=== PATIENT | female | born 1950 | race African-American/Black ===

== ENCOUNTER 2022-02-23 19:30 | Outpatient (CLI) | payer MEDICARE, MEDICAID | END 2022-02-23 19:31 | disposition home or self-care (01) | LOC: SLEEPLAB 19:30 | PROVIDERS: ATTEND Student in an Organized Health Care Education/Training Program | DX: G47.33 Obstructive sleep apnea (adult) (pediatric) (principal); R53.83 Other fatigue; I13.2 Hypertensive heart and chronic kidney disease with heart failure and with stage 5 chronic kidney disease, or end stage renal disease; I50.9 Heart failure, unspecified; N18.6 End stage renal disease; G47.00 Insomnia, unspecified; G47.10 Hypersomnia, unspecified; R06.83 Snoring | CPT/HCPCS: 95811 ==

== ENCOUNTER 2023-02-24 18:51 | Inpatient (IN) | payer OTHER ==
[2023-02-24] MEDS ORDERED: Ondansetron PF 4 MG/2 ML Vial IVP PRN (20:09)
[2023-02-24] MEDS ORDERED: Ondansetron ODT 4 MG TAB PO PRN (20:09)
[2023-02-24] MEDS ORDERED: Acetaminophen 650 MG Suppository PR PRN (20:09)
[2023-02-24 20:26] LABS: INR-International Normal Ratio 1.3; PTT 51.8 sec (22.9-36.1); Prothrombin Time 17.1 sec (12.0-14.7)
[2023-02-24] MEDS ORDERED: Ciprofloxacin Lactate/D5W 400 MG in Premix 1 BAG IVPB SCH ×2 (20:30→21:00)
[2023-02-24 20:40] LABS: Hematocrit 27.5 % (36.0-47.0); Hemoglobin 8.6 g/dL (12.0-16.0); Mean Corpuscular HGB CONC 31.3 g/dL (32.0-36.0); Mean Corpuscular Hemoglobin 23.9 pg (27.0-31.0); Mean Corpuscular Volume 76.4 fl (78.0-98.0); Mean Platelet Volume 9.6 fL (7.4-10.4); Platelet Count 436 10x3/uL (130-400); White Blood Cell (WBC) Count 47.9 10x3/uL (4.8-10.8)
[2023-02-24 20:42] LABS: Delete Auto Diff?? YES; Manual Diff?? YES
[2023-02-24 21:07] LABS: ALT (SGPT) 9 U/L (8-55); AST (SGOT) 17 U/L (5-34); Albumin 3.5 g/dL (3.4-4.8); Alkaline Phosphatase 103 U/L (40-110); Anion Gap 18 mmol/L (10-20); BUN (Urea Nitrogen) 31 mg/dL (9.8-20.1); Bilirubin, Total 0.6 mg/dL (0.2-1.2); Calc. Creatinine Clearance 8 mL/min (70-130); Calcium 8.5 mg/dL (7.8-10.44); Carbon Dioxide 22 mmol/L (23-31); Chloride 100 mmol/L (98-107); Estimated GFR 5; Globulin 3.8 g/dL (2.4-3.5); Glucose 99 mg/dL (83-110); Potassium 4.5 mmol/L (3.5-5.1); Protein, Total 7.3 g/dL (5.8-8.1); Sodium 135 mmol/L (136-145)
[2023-02-24 21:11] LABS: Anisocytosis MARKED = >30 cells HPF (0-5); Band 2 % (5-11); CellaVision Operator ID lab.sh2; Hypochromia MODERATE=16-30 cells HPF (0-5); Lymphocytes 3 % (21-51); Macrocytosis SLIGHT = 6-15 cells HPF (0-5); Microcytosis MODERATE=15-30 cells HPF (0-5); Monocytes 5 % (0-10); Neutrophil 90 % (42-75); Platelet Adequacy Comment Platelets Increased; Poikilocytosis MODERATE=16-30 cells HPF (0-5); Polychromasia MODERATE = 3-4 cells HPF (0-2); Stomatocytes SLIGHT = 2-5 cells HPF (0-1); Target Cells MODERATE= 6-15 cells HPF (0-1); Total Cell Count 102; Vacuoles SLIGHT
[2023-02-24] MEDS ORDERED: metroNIDAZOLE 500 MG in Premix 1 BAG IVPB SCH (22:00)
[2023-02-24] MEDS: Acetaminophen 325 MG TAB PO PRN (22:22)
[2023-02-24] MEDS ORDERED: Vancomycin (BATCH) 1.25 GM in Premix 1 BAG IVPB SCH (23:15)
[2023-02-24] MEDS ORDERED: Vancomycin Diaylsis Sliding Scale (Wt 71-99) FS SCH (23:45)
[2023-02-24] MEDS ORDERED: Meropenem 1 GM in Sodium Chloride 0.9% 100 ML IVPB SCH (23:59)
[2023-02-24] MEDS ORDERED: Vancomycin (BATCH) 1.5 GM in Premix 1 BAG IVPB SCH (23:59)
[2023-02-25 01:17] LABS: Lactic Acid 1.1 mmol/L (0.5-2.2)
[2023-02-25 04:32] LABS: Hematocrit 26.3 % (36.0-47.0); Hemoglobin 8.3 g/dL (12.0-16.0); Mean Corpuscular HGB CONC 31.6 g/dL (32.0-36.0); Mean Corpuscular Hemoglobin 23.9 pg (27.0-31.0); Mean Corpuscular Volume 75.6 fl (78.0-98.0); Platelet Count 401 10x3/uL (130-400); RBC Distribution Width 19.9 % (11.5-14.5); Red Blood Cell (RBC) Count 3.48 mill/uL (4.20-5.40); White Blood Cell (WBC) Count 49.1 10x3/uL (4.8-10.8)
[2023-02-25 04:35] LABS: Delete Auto Diff?? YES; Manual Diff?? YES
[2023-02-25 04:49] LABS: INR-International Normal Ratio 1.5; Prothrombin Time 18.6 sec (12.0-14.7)
[2023-02-25 04:50] LABS: PTT 56.9 sec (22.9-36.1)
[2023-02-25 04:56] LABS: Anion Gap 16 mmol/L (10-20); BUN (Urea Nitrogen) 35 mg/dL (9.8-20.1); Calc. Creatinine Clearance 8 mL/min (70-130); Calcium 8.2 mg/dL (7.8-10.44); Carbon Dioxide 23 mmol/L (23-31); Chloride 99 mmol/L (98-107); Estimated GFR 5; Glucose 93 mg/dL (83-110); Potassium 4.8 mmol/L (3.5-5.1); Sodium 133 mmol/L (136-145)
[2023-02-25 05:00] LABS: Anisocytosis MARKED = >30 cells HPF (0-5); Band 1 % (5-11); CellaVision Operator ID lab.sh2; Hypochromia SLIGHT = 6-15 cells HPF (0-5); Lymphocytes 8 % (21-51); Macrocytosis SLIGHT = 6-15 cells HPF (0-5); Microcytosis SLIGHT = 6-15 cells HPF (0-5); Monocytes 6 % (0-10); Neutrophil 85 % (42-75); Nucleated RBC (Manual Ct) 8 % (0); Platelet Adequacy Comment Platelets Increased; Poikilocytosis MODERATE=16-30 cells HPF (0-5); Polychromasia MODERATE = 3-4 cells HPF (0-2); Stomatocytes SLIGHT = 2-5 cells HPF (0-1); Target Cells MODERATE= 6-15 cells HPF (0-1); Total Cell Count 102; Vacuoles SLIGHT
[2023-02-25] MEDS: Meropenem 500 MG in Sodium Chloride 0.9% 100 ML IVPB SCH ×3 (08:15→22:21)
[2023-02-25 08:42] LABS: INR-International Normal Ratio 1.5; Prothrombin Time 18.7 sec (12.0-14.7)
[2023-02-25 08:51] LABS: ALT (SGPT) 7 U/L (8-55); AST (SGOT) 20 U/L (5-34); Albumin 3.5 g/dL (3.4-4.8); Alkaline Phosphatase 103 U/L (40-110); Bilirubin, Direct 0.4 mg/dL (0.1-0.3); Bilirubin, Total 0.6 mg/dL (0.2-1.2); Protein, Total 7.3 g/dL (5.8-8.1)
[2023-02-25] MEDS ORDERED: Ipratropium/Albuterol 3 ML NEB NEB PRN (10:10)
[2023-02-25] MEDS ORDERED: Morphine 2 MG/ML VIAL SLOW IVP PRN (10:21)
[2023-02-25] MEDS: Morphine 4 MG/ML VIAL SLOW IVP PRN (10:50)
[2023-02-25 11:53] LABS: Iron 17 ug/dL (50-170); Iron Binding Capacity, Total 131 mcg/dL (265-497)
[2023-02-25] MEDS ORDERED: Morphine 4 MG/ML VIAL SLOW IVP PRN (12:25)
[2023-02-25] MEDS ORDERED: Morphine 4 MG/ML VIAL SLOW IVP SCH ×2 (12:30)
[2023-02-25 13:09] LABS: HBSAg Index 0.26 S/CO (0-0.99); Hep B Surf Ag Non-Reactive S/CO (NonReactive)
[2023-02-25] MEDS ORDERED: fentaNYL 50 mcg/mL 1 mL Vial SLOW IVP SCH (15:06)
[2023-02-25 15:10] LABS: HBSAB Concentration 10.72 mIU/mL; Hep B Surf AB Indeterminate (NonReactive)
[2023-02-25 17:13] VITALS: BMI 31.4
[2023-02-25] MEDS ORDERED: Ciprofloxacin Lactate/D5W 200 MG in Premix 1 BAG IVPB SCH (20:00)
[2023-02-25 20:34] LABS: Hematocrit 27.3 % (36.0-47.0); Hemoglobin 8.5 g/dL (12.0-16.0); Mean Corpuscular HGB CONC 31.1 g/dL (32.0-36.0); Mean Corpuscular Hemoglobin 23.7 pg (27.0-31.0); Mean Corpuscular Volume 76.3 fl (78.0-98.0); Mean Platelet Volume 9.7 fL (7.4-10.4); Platelet Count 339 10x3/uL (130-400); RBC Distribution Width 19.7 % (11.5-14.5); Red Blood Cell (RBC) Count 3.58 mill/uL (4.20-5.40); White Blood Cell (WBC) Count 44.8 10x3/uL (4.8-10.8)
[2023-02-25 20:35] LABS: Delete Auto Diff?? YES; Manual Diff?? YES
[2023-02-25 20:57] LABS: Anisocytosis MODERATE=16-30 cells HPF (0-5); Band 5 % (5-11); CellaVision Operator ID LAB.CLH1; Hypochromia SLIGHT = 6-15 cells HPF (0-5); Lymphocytes 2 % (21-51); Macrocytosis SLIGHT = 6-15 cells HPF (0-5); Monocytes 2 % (0-10); Neutrophil 91 % (42-75); Nucleated RBC (Manual Ct) 2 % (0); Platelet Adequacy Comment Platelets Normal; Polychromasia SLIGHT = 2-3 cells HPF (0-2); Target Cells MODERATE= 6-15 cells HPF (0-1); Total Cell Count 100
[2023-02-25] MEDS ORDERED: Meropenem 500 MG in Sodium Chloride 0.9% 100 ML IVPB SCH (22:00)
[2023-02-25] MEDS: Amiodarone 200 MG TAB PO SCH (22:21)
[2023-02-26] MEDS: Morphine 4 MG/ML VIAL SLOW IVP PRN (05:54)
[2023-02-26] MEDS ORDERED: Epoetin (ESRD) 10,000 UNITS/ML VIAL SC SCH (09:00)
[2023-02-26] MEDS: Amiodarone 200 MG TAB PO SCH ×2 (09:17→20:09)
[2023-02-26 09:52] LABS: Hematocrit 23.4 % (36.0-47.0); Hemoglobin 7.4 g/dL (12.0-16.0); Mean Corpuscular HGB CONC 31.6 g/dL (32.0-36.0); Mean Corpuscular Hemoglobin 23.7 pg (27.0-31.0); Mean Platelet Volume 10.7 fL (7.4-10.4); Platelet Count 329 10x3/uL (130-400); RBC Distribution Width 19.7 % (11.5-14.5); Red Blood Cell (RBC) Count 3.12 mill/uL (4.20-5.40); White Blood Cell (WBC) Count 31.1 10x3/uL (4.8-10.8)
[2023-02-26 09:53] LABS: Delete Auto Diff?? YES; Manual Diff?? YES
[2023-02-26 10:19] LABS: ALT (SGPT) 8 U/L (8-55); AST (SGOT) 24 U/L (5-34); Alkaline Phosphatase 131 U/L (40-110); Bilirubin, Direct 0.3 mg/dL (0.1-0.3); Bilirubin, Total 0.7 mg/dL (0.2-1.2); Magnesium 2.1 mg/dL (1.6-2.6); Phosphorus 4.1 mg/dL (2.3-4.7); Protein, Total 6.8 g/dL (5.8-8.1)
[2023-02-26 10:22] LABS: Band 3 % (5-11); CellaVision Operator ID LAB.GE; Eosinophils 4 % (0-10); Hypochromia SLIGHT = 6-15 cells HPF (0-5); Lymphocytes 3 % (21-51); Metamyelocyte 1 % (0-0); Microcytosis SLIGHT = 6-15 cells HPF (0-5); Monocytes 4 % (0-10); Neutrophil 83 % (42-75); Nucleated RBC (Manual Ct) 6 % (0); Platelet Adequacy Comment Platelets Normal; Polychromasia MODERATE = 3-4 cells HPF (0-2); Reactive Lymphocytes 3 % (0-10); Target Cells MODERATE= 6-15 cells HPF (0-1); Total Cell Count 103
[2023-02-26] MEDS: Folic Acid 1 MG TAB PO SCH (12:03)
[2023-02-26] MEDS: Heparin 5,000 UNITS/ML VIAL SC SCH ×2 (15:54→20:09)
[2023-02-26] MEDS: Meropenem 500 MG in Sodium Chloride 0.9% 100 ML IVPB SCH (21:57)
[2023-02-27 06:29] LABS: Actual Bicarbonate (HCO3v) 23.8 mEq/L (22-28); Base Excess -1.8 mEq/L (-2.0 to +3.0); Calcium, Ionized (venous) 1.01 mmol/L (1.16-1.32); Chloride (VBG) 96 mmol/L (98-106); Hematocrit-VBG 21 % (36.0-47.0); Hemoglobin (Hb) 7.3 g/dL (11.7-16.1); Potassium (VBG) 4.37 mmol/L (3.70-5.30); Sodium 131 mmol/L (133-146); pH (venous) 7.347 (7.32-7.43)
[2023-02-27 06:34] LABS: Hematocrit 23.5 % (36.0-47.0); Hemoglobin 7.4 g/dL (12.0-16.0); Mean Corpuscular HGB CONC 31.5 g/dL (32.0-36.0); Mean Corpuscular Hemoglobin 23.5 pg (27.0-31.0); Mean Corpuscular Volume 74.6 fl (78.0-98.0); Mean Platelet Volume 9.7 fL (7.4-10.4); Platelet Count 287 10x3/uL (130-400); RBC Distribution Width 19.8 % (11.5-14.5); Red Blood Cell (RBC) Count 3.15 mill/uL (4.20-5.40); White Blood Cell (WBC) Count 23.1 10x3/uL (4.8-10.8)
[2023-02-27 06:40] LABS: Vancomycin, Random 13.3 ug/mL (See Comment)
[2023-02-27 06:41] LABS: Delete Auto Diff?? YES; Manual Diff?? YES
[2023-02-27 07:17] LABS: ALT (SGPT) Less than 7 U/L (8-55); AST (SGOT) 12 U/L (5-34); Alkaline Phosphatase 94 U/L (40-110); Anion Gap 17 mmol/L (10-20); BUN (Urea Nitrogen) 48 mg/dL (9.8-20.1); Bilirubin, Direct 0.4 mg/dL (0.1-0.3); Bilirubin, Total 0.8 mg/dL (0.2-1.2); Calc. Creatinine Clearance 8 mL/min (70-130); Calcium 8.3 mg/dL (7.8-10.44); Carbon Dioxide 24 mmol/L (23-31); Chloride 95 mmol/L (98-107); Estimated GFR 5; Glucose 68 mg/dL (83-110); Magnesium 2.4 mg/dL (1.6-2.6); Phosphorus 4.9 mg/dL (2.3-4.7); Potassium 4.4 mmol/L (3.5-5.1); Protein, Total 6.8 g/dL (5.8-8.1); Sodium 132 mmol/L (136-145)
[2023-02-27 07:56] LABS: Band 1 % (5-11); Hypochromia MODERATE=16-30 cells (100X) (0-5/hpf); Lymphocytes 17 % (21-51); Monocytes 7 % (0-10); Myelocyte 1 % (0-0); Neutrophil 74 % (42-75); Target Cells MODERATE= 6-15 cells (100X) (0-1/hpf)
[2023-02-27 07:57] LABS: Nucleated RBC (Manual Ct) 2 % (0)
[2023-02-27 07:58] LABS: Microcytosis SLIGHT = 6-15 cells (100X) (0-5/hpf); Platelet Adequacy Comment Platelets Normal; Polychromasia MODERATE = 3-4 cells (100X) (0-2/hpf)
[2023-02-27] MEDS: Acetaminophen 325 MG TAB PO PRN ×2 (08:05→18:02)
[2023-02-27] MEDS ORDERED: Amlodipine 5 MG TAB PO SCH (09:45)
[2023-02-27] MEDS: Amiodarone 200 MG TAB PO SCH ×2 (13:55→21:09)
[2023-02-27] MEDS: Folic Acid 1 MG TAB PO SCH (13:55)
[2023-02-27] MEDS: Iron, Sodium Ferric Gluconate 250 MG in Sodium Chloride 0.9% 250 ML 250 ML IVPB SCH (14:09)
[2023-02-27] MEDS ORDERED: Vancomycin 1 GM in Premix 1 BAG IVPB SCH (17:00)
[2023-02-27] MEDS: Meropenem 500 MG in Sodium Chloride 0.9% 100 ML IVPB SCH (21:09)
[2023-02-28 04:01] LABS: Hematocrit 23.6 % (36.0-47.0); Hemoglobin 7.3 g/dL (12.0-16.0); Mean Corpuscular HGB CONC 30.9 g/dL (32.0-36.0); Mean Corpuscular Hemoglobin 23.2 pg (27.0-31.0); Mean Corpuscular Volume 75.2 fl (78.0-98.0); Mean Platelet Volume 10.1 fL (7.4-10.4); Platelet Count 240 10x3/uL (130-400); RBC Distribution Width 19.9 % (11.5-14.5); Red Blood Cell (RBC) Count 3.14 mill/uL (4.20-5.40); White Blood Cell (WBC) Count 16.5 10x3/uL (4.8-10.8)
[2023-02-28 04:19] LABS: Delete Auto Diff?? YES; Manual Diff?? YES
[2023-02-28 05:12] LABS: Albumin 3.1 g/dL (3.4-4.8); Calcium 8.7 mg/dL (7.8-10.44); Chloride 94 mmol/L (98-107); Glucose 65 mg/dL (83-110); Potassium 3.6 mmol/L (3.5-5.1); Sodium 132 mmol/L (136-145)
[2023-02-28 05:13] LABS: ALT (SGPT) Less than 7 U/L (8-55); AST (SGOT) 15 U/L (5-34); Alkaline Phosphatase 90 U/L (40-110); Anion Gap 15 mmol/L (10-20); BUN (Urea Nitrogen) 21 mg/dL (9.8-20.1); Bilirubin, Total 0.6 mg/dL (0.2-1.2); Calc. Creatinine Clearance 15 mL/min (70-130); Carbon Dioxide 27 mmol/L (23-31); Estimated GFR 11; Magnesium 2.1 mg/dL (1.6-2.6); Protein, Total 7.1 g/dL (5.8-8.1)
[2023-02-28 06:13] LABS: Band 6 % (5-11); Eosinophils 5 % (0-10); Hypochromia MODERATE=16-30 cells (100X) (0-5/hpf); Lymphocytes 2 % (21-51); Monocytes 10 % (0-10); Neutrophil 77 % (42-75); Nucleated RBC (Manual Ct) 3 % (0); Platelet Adequacy Comment Appears Adequate; Stomatocytes SLIGHT = 2-5 cells (100X) (0-1/hpf); Target Cells MODERATE= 6-15 cells (100X) (0-1/hpf)
[2023-02-28] MEDS ORDERED: Dextrose 5% in Water 1,000 ML IV PRN (09:00)
[2023-02-28] MEDS ORDERED: Dextrose 50% Abboject 50 ML SYRINGE IVP PRN (09:00)
[2023-02-28] MEDS ORDERED: Glucagon 1 MG/ML KIT IM PRN (09:00)
[2023-02-28] MEDS: Amiodarone 200 MG TAB PO SCH ×2 (09:25→20:55)
[2023-02-28] MEDS: Amlodipine 5 MG TAB PO SCH (09:26)
[2023-02-28] MEDS: Folic Acid 1 MG TAB PO SCH (09:26)
[2023-02-28] MEDS: Iron, Sodium Ferric Gluconate 250 MG in Sodium Chloride 0.9% 250 ML 250 ML IVPB SCH (12:18)
[2023-02-28 20:08] LABS: Hematocrit 23.5 % (36.0-47.0); Hemoglobin 7.5 g/dL (12.0-16.0)
[2023-02-28] MEDS: Meropenem 500 MG in Sodium Chloride 0.9% 100 ML IVPB SCH (20:55)
[2023-03-01 04:30] LABS: Hematocrit 22.6 % (36.0-47.0); Hemoglobin 7.1 g/dL (12.0-16.0); Mean Corpuscular HGB CONC 31.4 g/dL (32.0-36.0); Mean Corpuscular Hemoglobin 23.4 pg (27.0-31.0); Mean Corpuscular Volume 74.6 fl (78.0-98.0); Mean Platelet Volume 10.3 fL (7.4-10.4); Platelet Count 253 10x3/uL (130-400); Red Blood Cell (RBC) Count 3.03 mill/uL (4.20-5.40); White Blood Cell (WBC) Count 11.6 10x3/uL (4.8-10.8)
[2023-03-01 05:12] LABS: ALT (SGPT) Less than 7 U/L (8-55); AST (SGOT) 11 U/L (5-34); Alkaline Phosphatase 86 U/L (40-110); Anion Gap 14 mmol/L (10-20); BUN (Urea Nitrogen) 35 mg/dL (9.8-20.1); Bilirubin, Total 0.6 mg/dL (0.2-1.2); Calc. Creatinine Clearance 10 mL/min (70-130); Calcium 8.2 mg/dL (7.8-10.44); Carbon Dioxide 27 mmol/L (23-31); Chloride 96 mmol/L (98-107); Estimated GFR 7; Glucose 83 mg/dL (83-110); Magnesium 2.4 mg/dL (1.6-2.6); Potassium 3.8 mmol/L (3.5-5.1); Sodium 133 mmol/L (136-145)
[2023-03-01 05:16] LABS: Delete Auto Diff?? YES; Manual Diff?? YES
[2023-03-01 07:46] LABS: Vancomycin, Random 20.3 ug/mL (See Comment)
[2023-03-01] MEDS: Folic Acid 1 MG TAB PO SCH (08:00)
[2023-03-01 08:30] LABS: Band 1 % (5-11); Eosinophils 5 % (0-10); Hypochromia MODERATE=16-30 cells (100X) (0-5/hpf); Lymphocytes 13 % (21-51); Microcytosis MODERATE=15-30 cells (100X) (0-5/hpf); Monocytes 10 % (0-10); Neutrophil 71 % (42-75); Nucleated RBC (Manual Ct) 14 % (0)
[2023-03-01 08:31] LABS: Anisocytosis MODERATE=16-30 cells (100X) (0-5/hpf); Polychromasia MODERATE = 3-4 cells (100X) (0-2/hpf); Target Cells MARKED = >16 cells (100X) (0-1/hpf)
[2023-03-01 08:32] LABS: Platelet Adequacy Comment Platelets Normal
[2023-03-01] MEDS ORDERED: Epoetin (ESRD) 10,000 UNITS/ML VIAL SC SCH (09:00)
[2023-03-01] MEDS: Amiodarone 200 MG TAB PO SCH ×2 (14:19→22:32)
[2023-03-01] MEDS: Amlodipine 5 MG TAB PO SCH (14:19)
[2023-03-01] MEDS: Senokot S 8.6-50 MG TAB PO SCH ×2 (14:27→22:32)
[2023-03-01] MEDS: Iron, Sodium Ferric Gluconate 250 MG in Sodium Chloride 0.9% 250 ML 250 ML IVPB SCH (14:46)
[2023-03-01 17:09] LABS: Hematocrit 33.2 % (36.0-47.0); Hemoglobin 10.5 g/dL (12.0-16.0)
[2023-03-01] MEDS: Meropenem 500 MG in Sodium Chloride 0.9% 100 ML IVPB SCH (17:13)
[2023-03-01] MEDS: Acetaminophen 325 MG TAB PO PRN (17:13)
[2023-03-02 05:08] LABS: Hematocrit 30.3 % (36.0-47.0); Hemoglobin 9.4 g/dL (12.0-16.0); Mean Corpuscular Hemoglobin 24.4 pg (27.0-31.0); Mean Corpuscular Volume 78.5 fl (78.0-98.0); Mean Platelet Volume 10.8 fL (7.4-10.4); Platelet Count 283 10x3/uL (130-400); RBC Distribution Width 21.2 % (11.5-14.5); Red Blood Cell (RBC) Count 3.86 mill/uL (4.20-5.40); White Blood Cell (WBC) Count 12.2 10x3/uL (4.8-10.8)
[2023-03-02 05:22] LABS: Delete Auto Diff?? YES; Manual Diff?? YES
[2023-03-02 05:38] LABS: ALT (SGPT) Less than 7 U/L (8-55); AST (SGOT) 16 U/L (5-34); Albumin 3.5 g/dL (3.4-4.8); Alkaline Phosphatase 97 U/L (40-110); Anion Gap 19 mmol/L (10-20); BUN (Urea Nitrogen) 27 mg/dL (9.8-20.1); Bilirubin, Total 0.7 mg/dL (0.2-1.2); Calc. Creatinine Clearance 12 mL/min (70-130); Calcium 9.2 mg/dL (7.8-10.44); Carbon Dioxide 24 mmol/L (23-31); Chloride 98 mmol/L (98-107); Estimated GFR 8; Globulin 4.8 g/dL (2.4-3.5); Glucose 80 mg/dL (83-110); Potassium 3.7 mmol/L (3.5-5.1); Protein, Total 8.3 g/dL (5.8-8.1); Sodium 137 mmol/L (136-145)
[2023-03-02 06:33] LABS: Anisocytosis SLIGHT = 6-15 cells HPF (0-5); CellaVision Operator ID lab.abc; Eosinophils 2 % (0-10); Hemoglobin C Crystals SLIGHT; Lymphocytes 8 % (21-51); Microcytosis SLIGHT = 6-15 cells HPF (0-5); Monocytes 20 % (0-10); Neutrophil 67 % (42-75); Nucleated RBC (Manual Ct) 14 % (0); Pappenheimer Bodies SLIGHT = 1-2 cells (100X) (None Seen); Platelet Adequacy Comment Platelets Normal; Polychromasia MODERATE = 3-4 cells HPF (0-2); Smudge Cells 15.4 %; Target Cells MODERATE= 6-15 cells HPF (0-1); Total Cell Count 104
[2023-03-02] MEDS: Folic Acid 1 MG TAB PO SCH (09:40)
[2023-03-02] MEDS: Amiodarone 200 MG TAB PO SCH ×2 (09:41→21:34)
[2023-03-02] MEDS: Amlodipine 5 MG TAB PO SCH (09:41)
[2023-03-02] MEDS: Senokot S 8.6-50 MG TAB PO SCH ×2 (09:46→21:34)
[2023-03-02] MEDS ORDERED: Amlodipine 5 MG TAB PO SCH (12:45)
[2023-03-02] MEDS: Iron, Sodium Ferric Gluconate 250 MG in Sodium Chloride 0.9% 250 ML 250 ML IVPB SCH (13:00)
[2023-03-02] MEDS: Meropenem 500 MG in Sodium Chloride 0.9% 100 ML IVPB SCH (18:47)
[2023-03-03] MEDS: Senokot S 8.6-50 MG TAB PO SCH (08:31)
[2023-03-03] MEDS: Amiodarone 200 MG TAB PO SCH (08:33)
[2023-03-03] MEDS: Folic Acid 1 MG TAB PO SCH (08:33)
[2023-03-03] MEDS ORDERED: Amlodipine 5 MG TAB PO SCH (09:00)
[2023-03-03 09:14] LABS: #Basophils 0.1 thou/uL (0.0-0.2); #Eosinphils 0.4 thou/uL (0.0-0.7); #Neutrophils 10.9 thou/uL (1.40-6.50); %Basophils 0.6 % (0.0-1.0); %Eosinophils 2.5 % (0.0-10.0); %Lymphocytes 12.7 % (21.0-51.0); %Monocytes 12.9 % (0.0-10.0); %Neutrophils 70.3 % (42.0-75.0); Hematocrit 28.6 % (36.0-47.0); Mean Corpuscular HGB CONC 31.5 g/dL (32.0-36.0); Mean Corpuscular Hemoglobin 24.5 pg (27.0-31.0); Mean Corpuscular Volume 77.9 fl (78.0-98.0); Mean Platelet Volume 10.2 fL (7.4-10.4); Platelet Count 392 10x3/uL (130-400); RBC Distribution Width 21.7 % (11.5-14.5); Red Blood Cell (RBC) Count 3.67 mill/uL (4.20-5.40); White Blood Cell (WBC) Count 15.5 10x3/uL (4.8-10.8)
[2023-03-03 09:34] LABS: Anion Gap 19 mmol/L (10-20); BUN (Urea Nitrogen) 38 mg/dL (9.8-20.1); Calc. Creatinine Clearance 8 mL/min (70-130); Calcium 8.6 mg/dL (7.8-10.44); Carbon Dioxide 22 mmol/L (23-31); Chloride 99 mmol/L (98-107); Estimated GFR 5; Glucose 90 mg/dL (83-110); Sodium 136 mmol/L (136-145)
[2023-03-03 11:51] VITALS: TEMP 98.1
[2023-03-03] MEDS ORDERED: LevoFLOXacin 750 MG TAB PO SCH (13:45)
[2023-03-03 14:49] VITALS: BP 196/82
== END 2023-03-03 16:20 | disposition home or self-care (01) | DRG 871 ==
LOC: 2NO 18:51
PROVIDERS: ADMIT Student in an Organized Health Care Education/Training Program; ATTEND Hospitalist
PROC: 3E03329 Introduction of Other Anti-infective into Peripheral Vein, Percutaneous Approach (ICD-10-PCS; 2023-02-24)
PROC: 30233W1 Transfusion of Nonautologous Factor IX into Peripheral Vein, Percutaneous Approach (ICD-10-PCS; 2023-02-24)
PROC: 0F9430Z Drainage of Gallbladder with Drainage Device, Percutaneous Approach (ICD-10-PCS; principal; 2023-02-25)
PROC: 4A043R1 Measurement of Venous Saturation, Peripheral, Percutaneous Approach (ICD-10-PCS; 2023-02-27)
PROC: 30233N1 Transfusion of Nonautologous Red Blood Cells into Peripheral Vein, Percutaneous Approach (ICD-10-PCS; 2023-03-01)
DX: A41.9 Sepsis, unspecified organism (principal); J18.9 Pneumonia, unspecified organism; N18.6 End stage renal disease; E87.21 Acute metabolic acidosis; J96.11 Chronic respiratory failure with hypoxia; K80.00 Calculus of gallbladder with acute cholecystitis without obstruction; I50.30 Unspecified diastolic (congestive) heart failure; K82.1 Hydrops of gallbladder; I12.0 Hypertensive chronic kidney disease with stage 5 chronic kidney disease or end stage renal disease; I48.0 Paroxysmal atrial fibrillation; Z88.6 Allergy status to analgesic agent; J44.9 Chronic obstructive pulmonary disease, unspecified; Z90.710 Acquired absence of both cervix and uterus; Z98.890 Other specified postprocedural states; Z80.1 Family history of malignant neoplasm of trachea, bronchus and lung; D63.1 Anemia in chronic kidney disease; G47.33 Obstructive sleep apnea (adult) (pediatric); E87.5 Hyperkalemia; R59.0 Localized enlarged lymph nodes; N28.1 Cyst of kidney, acquired; E66.01 Morbid (severe) obesity due to excess calories; Z68.31 Body mass index [BMI] 31.0-31.9, adult; I35.8 Other nonrheumatic aortic valve disorders; Z79.899 Other long term (current) drug therapy; Z79.01 Long term (current) use of anticoagulants; Z99.2 Dependence on renal dialysis; K80.70 Calculus of gallbladder and bile duct without cholecystitis without obstruction; R59.1 Generalized enlarged lymph nodes; D72.829 Elevated white blood cell count, unspecified; Z99.81 Dependence on supplemental oxygen; Z88.8 Allergy status to other drugs, medicaments and biological substances; Z90.49 Acquired absence of other specified parts of digestive tract; Z11.52 Encounter for screening for COVID-19
CPT/HCPCS: 36415; 36430; 47533; 71045; 74176; 74181; 76705; 76942; 80048; 80053; 80076; 80202; 82728; 82805; 83540; 83550; 83605; 83690; 83735; 84100; 84484; 85025; 85610; 85730; 86706; 86850; 86870; 86900; 86901; 86905; 86922; 87040; 87070; 87186; 87205; 87340; 90935; 93005; 93306; 94660; 94760; 96361; 96365; 96366; 96372; 96375; 96376; C1729; C9113; G0257; J0612; J0744; J1644; J1815; J1956; J2185; J2270; J2405; J2916; J3010; J3370; J3370-JW; J3490; J7042; J7050; J7070; J7999; P9016; P9059; Q4081; S0028

== ENCOUNTER 2023-03-28 05:31 | Observation (INO) | payer OTHER ==
[2023-03-28 06:51] LABS: Hematocrit 36.2 % (36.0-47.0); Hemoglobin 11.1 g/dL (12.0-16.0); Mean Corpuscular HGB CONC 30.7 g/dL (32.0-36.0); Mean Corpuscular Hemoglobin 24.8 pg (27.0-31.0); Mean Platelet Volume 9.5 fL (7.4-10.4); Platelet Count 392 10x3/uL (130-400); RBC Distribution Width 20.4 % (11.5-14.5); Red Blood Cell (RBC) Count 4.47 mill/uL (4.20-5.40); White Blood Cell (WBC) Count 12.3 10x3/uL (4.8-10.8)
[2023-03-28 07:14] LABS: ALT (SGPT) Less than 7 U/L (8-55); AST (SGOT) 13 U/L (5-34); Albumin 3.5 g/dL (3.4-4.8); Alkaline Phosphatase 132 U/L (40-110); Anion Gap 15 mmol/L (10-20); BUN (Urea Nitrogen) 16 mg/dL (9.8-20.1); Bilirubin, Total 0.5 mg/dL (0.2-1.2); Calc. Creatinine Clearance 0 mL/min (70-130); Calcium 8.1 mg/dL (7.8-10.44); Carbon Dioxide 27 mmol/L (23-31); Chloride 98 mmol/L (98-107); Delete Auto Diff?? YES; Estimated GFR 8; Globulin 4.3 g/dL (2.4-3.5); Glucose 76 mg/dL (83-110); Manual Diff?? YES; Potassium 3.8 mmol/L (3.5-5.1); Protein, Total 7.8 g/dL (5.8-8.1); Sodium 136 mmol/L (136-145)
[2023-03-28 07:22] LABS: Band 3 % (5-11); CellaVision Operator ID LAB.GE; Eosinophils 5 % (0-10); Hypochromia SLIGHT = 6-15 cells HPF (0-5); Large Platelets 0.8 % (0-5); Lymphocytes 11 % (21-51); Monocytes 12 % (0-10); Myelocyte 1 % (0-0); Neutrophil 62 % (42-75); Nucleated RBC (Manual Ct) 31 % (0); Platelet Adequacy Comment Platelets Normal; Poikilocytosis SLIGHT = 6-15 cells HPF (0-5); Polychromasia MARKED = >4 cells HPF (0-2); Reactive Lymphocytes 4 % (0-10); Spherocytes SLIGHT = 1-5 cells HPF (None Seen); Target Cells MODERATE= 6-15 cells HPF (0-1); Total Cell Count 119
[2023-03-28] MEDS ORDERED: Cefepime 2 GM VIAL ONE (11:37)
[2023-03-28] MEDS ORDERED: Sodium Chloride 0.9% 100 ML ONE (11:37)
[2023-03-28] MEDS ORDERED: Acetaminophen 325 MG TAB PO PRN (11:49)
[2023-03-28] MEDS ORDERED: metroNIDAZOLE 500 MG/100 ML BAG ONE (12:56)
[2023-03-28] MEDS ORDERED: Iopamidol-370 76% 500 ML MDV (1 ML CHARGE) ONE (13:01)
[2023-03-28] MEDS ORDERED: LevoFLOXacin 500 mg/D5W 500 MG in Premix 1 BAG IVPB SCH (14:00)
[2023-03-28 14:12] LABS: INR-International Normal Ratio 1.1; Prothrombin Time 14.5 sec (12.0-14.7)
[2023-03-28 15:47] VITALS: BMI 28.5
[2023-03-28] MEDS: NIFEdipine XL 60 MG ER.TAB PO SCH (20:52)
[2023-03-28] MEDS: Amiodarone 200 MG TAB PO SCH (20:52)
[2023-03-29 05:28] LABS: Hematocrit 33.5 % (36.0-47.0); Hemoglobin 10.3 g/dL (12.0-16.0); Mean Corpuscular HGB CONC 30.7 g/dL (32.0-36.0); Mean Corpuscular Hemoglobin 24.8 pg (27.0-31.0); Mean Corpuscular Volume 80.5 fl (78.0-98.0); Mean Platelet Volume 9.7 fL (7.4-10.4); Platelet Count 369 10x3/uL (130-400); RBC Distribution Width 20.7 % (11.5-14.5); Red Blood Cell (RBC) Count 4.16 mill/uL (4.20-5.40); White Blood Cell (WBC) Count 10.7 10x3/uL (4.8-10.8)
[2023-03-29 05:58] LABS: ALT (SGPT) Less than 7 U/L (8-55); AST (SGOT) 12 U/L (5-34); Albumin 3.2 g/dL (3.4-4.8); Alkaline Phosphatase 119 U/L (40-110); Anion Gap 18 mmol/L (10-20); BUN (Urea Nitrogen) 23 mg/dL (9.8-20.1); Bilirubin, Total 0.4 mg/dL (0.2-1.2); Calc. Creatinine Clearance 8 mL/min (70-130); Calcium 7.9 mg/dL (7.8-10.44); Carbon Dioxide 23 mmol/L (23-31); Chloride 100 mmol/L (98-107); Estimated GFR 6; Globulin 4.1 g/dL (2.4-3.5); Glucose 81 mg/dL (83-110); Potassium 4.1 mmol/L (3.5-5.1); Protein, Total 7.3 g/dL (5.8-8.1); Sodium 137 mmol/L (136-145)
[2023-03-29 05:59] VITALS: BP 142/64; TEMP 97.5
[2023-03-29 06:08] LABS: Delete Auto Diff?? YES; Manual Diff?? YES
[2023-03-29 06:45] LABS: Anisocytosis MODERATE=16-30 cells HPF (0-5); Band 1 % (5-11); CellaVision Operator ID LAB.GE; Eosinophils 3 % (0-10); Hypochromia SLIGHT = 6-15 cells HPF (0-5); Lymphocytes 25 % (21-51); Monocytes 6 % (0-10); Neutrophil 53 % (42-75); Nucleated RBC (Manual Ct) 82 % (0); Platelet Adequacy Comment Platelets Normal; Polychromasia MARKED = >4 cells HPF (0-2); Reactive Lymphocytes 10 % (0-10); Target Cells MARKED = >16 cells HPF (0-1); Total Cell Count 101
[2023-03-29] MEDS: Amiodarone 200 MG TAB PO SCH (08:04)
[2023-03-29] MEDS: NIFEdipine XL 60 MG ER.TAB PO SCH (08:04)
[2023-03-29] MEDS ORDERED: Montelukast Sodium 4 mg Chewable Tablet PO SCH (09:00)
[2023-03-29] MEDS ORDERED: Heparin 10,000 UNITS/ 10 ML VIAL ONE (11:25)
[2023-03-30] MEDS ORDERED: LevoFLOXacin 500 mg/D5W 500 MG in Premix 1 BAG IVPB SCH (18:00)
== END 2023-03-29 17:30 | disposition home or self-care (01) ==
LOC: ERS 05:31 → ERHOLD 11:53 → SURG B 16:44
PROVIDERS: ADMIT Student in an Organized Health Care Education/Training Program; ATTEND Internal Medicine
DX: K94.23 Gastrostomy malfunction (principal); K82.8 Other specified diseases of gallbladder; I50.9 Heart failure, unspecified; N18.6 End stage renal disease; Z99.2 Dependence on renal dialysis; I48.20 Chronic atrial fibrillation, unspecified; K80.10 Calculus of gallbladder with chronic cholecystitis without obstruction; J96.10 Chronic respiratory failure, unspecified whether with hypoxia or hypercapnia; J44.9 Chronic obstructive pulmonary disease, unspecified; G47.30 Sleep apnea, unspecified; D63.1 Anemia in chronic kidney disease; Z88.6 Allergy status to analgesic agent; Z88.0 Allergy status to penicillin; Z88.5 Allergy status to narcotic agent; Z88.8 Allergy status to other drugs, medicaments and biological substances; Z88.2 Allergy status to sulfonamides; Z79.899 Other long term (current) drug therapy
CPT/HCPCS: 74177; 80053 ×2; 85025 ×2; 85610; 93005; G0378 ×3; 36415; 90935; 96365; 96367; G0257; J0692; J1644; J3490; Q9967